=== PATIENT | male | born 1965 | race American Indian/Alaskan Native ===

== ENCOUNTER 2018-05-11 07:11 | Day surgery (SDC) | payer BC ==
[2018-05-11] MEDS ORDERED: NACL 0.9% 500 ML 500 ML IV SCH (08:00)
[2018-05-11] MEDS ORDERED: ECOTRIN PO ONE (09:00)
[2018-05-11] MEDS ORDERED: NITROGLYCERIN SYRINGE 3 ML ONE (10:18)
[2018-05-11] MEDS ORDERED: CALAN ONE (10:18)
[2018-05-11] MEDS ORDERED: XYLOCAINE 2% INFILTRATI ONE (10:18)
[2018-05-11] MEDS ORDERED: HEPARIN/NS 5000 UNIT/500ML(CATH LAB) 1,000 ML IR ONE (10:18)
[2018-05-11] MEDS ORDERED: HEPARIN 10,000 UNITS/10 ML ONE (10:18)
[2018-05-11] MEDS ORDERED: SUBLIMAZE ONE (10:19)
[2018-05-11] MEDS ORDERED: VERSED ONE (10:19)
--- NOTE | 2018-05-11 11:01 | Short Stay Summary ---
Short Stay Documentation Date of service: 05/11/18 - History H&P: obtained from office - Allergies and Medications Current Medications: Allergies No Known Allergies Allergy (Unverified 05/11/18 07:11) Home Medications Medication Instructions Recorded Confirmed Last Taken Type Aspirin [Aspirin EC] 325 mg PO DAILY 05/11/18 05/11/18 05/11/18 History Metoprolol Tartrate 25 mg PO BID 05/11/18 05/11/18 05/10/18 History Rosuvastatin Calcium [Crestor] 40 mg PO DAILY 05/11/18 05/11/18 05/11/18 History Sitagliptin/Metformin (Nf) 50 - 1,000 mg PO DAILY 05/11/18 05/11/18 05/10/18 History [Janumet 50-1,000 mg (Nf)] Valsartan/Hydrochlorothiazide 1 each PO DAILY 05/11/18 05/11/18 05/11/18 History [Valsartan-Hctz 160-12.5 mg Tab] amLODIPine [Norvasc] 10 mg PO DAILY 05/11/18 05/11/18 05/11/18 History Active Medications Sodium Chloride (Nacl 0.9% 500 Ml) 500 mls @ 50 mls/hr IV DIRECT DIANA Stop: 05/11/18 17:59 Last Admin: 05/11/18 08:54 Dose: 50 mls/hr - Brief post op/procedure progress note Date of procedure: 05/11/18 Pre-op diagnosis: abnl stress and chest pain Post-op diagnosis: other (non obstructive cad) Procedure: see report Anesthesia: local Estimated blood loss: none - Disposition Condition at discharge: Good Disposition: [id number] TO HOME OR SELFCARE - Discharge Diagnoses (1) Diabetes mellitus Status: Acute Qualifiers: Diabetes mellitus type: type 2 Diabetes mellitus skilled nursing insulin use: with skilled nursing use Diabetes mellitus complication status: without complication Qualified Code(s): E11.9 - Type 2 diabetes mellitus without complications; Z79.4 - senior living (current) use of insulin (2) Hypertension Status: Chronic Qualifiers: Hypertension type: essential hypertension Qualified Code(s): I10 - Essential (primary) hypertension (3) Hyperlipemia, mixed Status: Chronic (4) Chest pain Status: Acute Qualifiers: Chest pain type: unspecified Qualified Code(s): R07.9 - Chest pain, unspecified (5) Abnormal cardiovascular stress test Status: Resolved Short Stay Discharge Plan Activity: advance as tolerated Diet: low cholesterol, diabetic Special Instructions: hold Metformin (for two days) Follow up with: LEEANN FELDER MD [Other] - 7 Days
--- NOTE | 2018-05-11 11:48 | Cardiac Catherization Report ---
LEFT HEART CATHETERIZATION REFERRING PHYSICIAN: office CLINICAL INFORMATION: This is a 52-year-old gentleman with hypertension, diabetes, cholesterol, presents with chest pain, abnormal stress test with trans ischemic dilatation with decreased EF on stress compared to rest. He is on beta soo therapy and aspirin, is here for left heart cath. Left heart cath done with moderate sedation. Sedation time started at 10:35 a.m. and finished at 10:45 a.m., 10 minutes of moderate sedation 1 mg Versed, 50 mcg of fentanyl. Procedure was done via the right radial artery, sterile technique, local anesthesia, 6-Bermudian radial sheath inserted. PROCEDURE FINDINGS: Left system engaged with a JL3.5 catheter. Left main is large and patent, bifurcates to large LAD, proximal is patent and bifurcates into a medium to large caliber diagonal that is patent with some mild ostial disease around 20% and then the mid LAD has a 20% lesion and the rest is a large caliber, patent. Circumflex AV groove is a large caliber vessel, goes into a small to medium caliber OM1 and goes to a medium caliber OM2 that is patent. RCA is a large dominant vessel, patent with mild luminal irregularities, bifurcates into small PDA and PLV that are patent. LV gram done in YOUSIF and CHAPPELL view shows normal LV function. LVEF 55% to 60%. LVEDP 18 mmHg, LV is 150/18, aortic is 149/85. No gradient across the aortic valve on pullback. 5-Bermudian catheters were taken over the guidewire, 6-Bermudian radial sheath was discontinued. Radial dressing applied. No hematoma, no bleeding. SUMMARY: 1. Left main patent. LAD mid 20%, ostial diagonal 20%. Circumflex patent. OM1, OM2 patent. RCA patent with mild luminal irregularities. Normal LV function. 2. Mild nonobstructive coronary artery disease. Will treat this medically and hold metformin 48 hours. Discussed with the patient and the patient's family. JOB# [id number] CAROL/JOSELITO ALVAREZ
[2018-05-11 15:37] VITALS: BP 109/72
== END 2018-05-11 14:45 | disposition home or self-care (01) ==
LOC: CATHLABREC 07:11
PROVIDERS: ATTEND Internal Medicine
DX: I25.10 Atherosclerotic heart disease of native coronary artery without angina pectoris (principal); E11.9 Type 2 diabetes mellitus without complications; I10 Essential (primary) hypertension; E78.2 Mixed hyperlipidemia; K21.9 Gastro-esophageal reflux disease without esophagitis; G47.30 Sleep apnea, unspecified; Z79.899 Other long term (current) drug therapy; Z98.890 Other specified postprocedural states; Z79.82 Long term (current) use of aspirin; Z87.891 Personal history of nicotine dependence; Z79.01 Long term (current) use of anticoagulants
CPT/HCPCS: 82962; 93005; 93010; 93458; 99156; C1894; J1644; J2250; J3010; J7040; Q9967